=== PATIENT | female | born 1955 | race Caucasian/White ===

== ENCOUNTER → 2016-11-21 | Outpatient (CLI) | payer BC ==
--- NOTE | 2016-11-22 12:31 | MAMMOGRAPHY REPORT ---
BILATERAL DIGITAL SCREENING MAMMOGRAM WITH CAD: 11/21/2016 CLINICAL HISTORY: Routine screening. Patient has no complaints. TECHNIQUE: Bilateral CC, MLO, repeat CC views with the nipples in profile as well as a repeat left M LO view were obtained. Current study was also evaluated with a Computer Aided Detection (CAD) syste m. COMPARISON: Comparison is made to exams dated: 11/18/2015 mammogram, 08/23/2014 mammogram, 3 mammogram, 08/18/2012 mammogram, 08/16/2011 mammogram, and 12/15/2009 mammogram - [facility]. BREAST COMPOSITION: The tissue of both breasts is almost entirely fatty. FINDINGS: There are stable grouped calcifications in the far posterior medial left breast. A stabl e benign appearing 10 mm mass in the anterior subareolar left breast appears similar in size dating back to at least 12/15/2009, therefore likely benign. No new suspicious mass, architectural distortion or cluster of microcalcifications is seen. IMPRESSION: ACR BI-RADS CATEGORY 2: BENIGN There is no mammographic evidence of malignancy. A 1 year screening mammogram is recommended. The p atient will receive written notification of the results. Approximately 10% of breast cancers are not detected with mammography. A negative mammographic repor t should not delay biopsy if a clinically suggestive mass is present. Laya Montero M.D. ay/:11/21/2016 17:07:50 Sketcher: Jeffrey AVERY(R)(M), [facility] letter sent: Normal 1/2 BI-RADS Code: ACR BI-RADS Category 2: Benign
== END | disposition home or self-care (01) ==
LOC: C.MAMM 16:41
PROVIDERS: ATTEND Family Medicine
DX: Z12.31 Encounter for screening mammogram for malignant neoplasm of breast (principal)

== ENCOUNTER → 2017-11-04 | Outpatient (CLI) | payer BC ==
[2017-11-04 18:22] LABS: BLOOD UREA NITROGEN 13 mg/dl (7-18); CREATININE 0.95 mg/dl (0.60-1.20)
== END | disposition home or self-care (01) ==
LOC: C.LABMFLN 16:55
PROVIDERS: ATTEND Psychiatry & Neurology Neurology
DX: Z00.00 Encounter for general adult medical examination without abnormal findings (principal)

== ENCOUNTER → 2017-11-15 | Outpatient (CLI) | payer BC ==
[~2017-11-15] MED LIST: GADAVIST IV PRN
--- NOTE | 2017-11-15 11:00 | DIAGNOSTIC IMAGING REPORT ---
BRAIN COMBO FOR MS HISTORY: 62 years-old Female G35 Multiple sclerosis. Follow-up study in a patient with multiple sclerosis COMPARISON: Brain MRI 07/24/2016 TECHNIQUE: Multiplanar multisequence MRI the brain was obtained both with and without the use of 11 mL Gadavist utilizing MS protocol. FINDINGS: There is no restricted diffusion to suggest infarction. Midline structures including the corpus callosum, brainstem, optic chiasm, infundibulum, pituitary and pineal glands appear unremarkable on the sagittal T1 series. No cerebellar tonsillar herniation. Degenerative changes noted within the spine. There is no acute intracranial hemorrhage, midline shift, abnormal extra-axial collections, hydrocephalus or intracranial mass identified. The major flow voids at the level of the skull base appear to be patent. Mastoid air cells appear generally clear. Mild mucosal thickening of the ethmoid air cells and right maxillary sinus. Orbits and soft tissues are unremarkable. Note is made of hyperostosis frontalis interna. There is no abnormal extra-axial or extra-axial enhancement identified. There is redemonstration of multifocal areas of T2/FLAIR prolongation within the periventricular and subcortical white matter which appears stable from comparison without new lesions identified. No infratentorial lesions are seen. The imaged cervical spinal cord appears unremarkable. IMPRESSION: 1. No acute intracranial abnormality identified. 2. Unchanged multifocal areas of T2/FLAIR prolongation within the subcortical and periventricular white matter of the cerebral hemispheres bilaterally compatible with patient's clinical history of multiple sclerosis. No new lesions are identified. No abnormal enhancement seen to suggest active demyelination. The above report was generated using voice recognition software. It may contain grammatical, syntax or spelling errors. Electronically signed by: Aguila Lawton M.D. 11/15/2017 10:58 AM Dictated Date/Time: 11/15/2017 10:49 AM
== END | disposition home or self-care (01) ==
LOC: C.MRI 09:22
PROVIDERS: ATTEND Psychiatry & Neurology Neurology
DX: G35 Multiple sclerosis (principal)

== ENCOUNTER → 2017-11-25 | Outpatient (CLI) | payer BC ==
--- NOTE | 2017-11-26 07:58 | MAMMOGRAPHY REPORT ---
BILATERAL DIGITAL SCREENING MAMMOGRAM TOMOSYNTHESIS WITH CAD: 11/25/2017 CLINICAL HISTORY: Routine screening. TECHNIQUE: Breast tomosynthesis in addition to standard 2D mammography was performed. Current study was also evaluated with a Computer Aided Detection (CAD) system. COMPARISON: Comparison is made to exams dated: 11/21/2016 mammogram, 11/18/2015 mammogram, 08/23/2014 mammogram, 08/19/2013 mammogram, 08/18/2012 mammogram, and 08/16/2011 mammogram - [facility]. BREAST COMPOSITION: The tissue of both breasts is almost entirely fatty. FINDINGS: A small grouping of round and coarse calcifications in the far posterior left breast proje cting over the inferior petrosal muscle on the MLO view appears stable in number dating back to at le ast 08/16/2011, therefore likely benign. There are other stable groupings of punctate microcalcifica tions in the breasts. Stable nodular asymmetry in the medial, middle one third of the right breast o n the CC view. No suspicious mass, architectural distortion or cluster of microcalcifications is seen . IMPRESSION: ACR BI-RADS CATEGORY 2: BENIGN There is no mammographic evidence of malignancy. A 1 year screening mammogram is recommended. The pa tient will receive written notification of the results. Approximately 10% of breast cancers are not detected with mammography. A negative mammographic report should not delay biopsy if a clinically suggestive mass is present. Laya Montero M.D. ay/:11/25/2017 17:08:09 Nutrition Counselor: Jeffrey AVERY(Torri)(M), [facility] letter sent: Normal 1/2 BI-RADS Code: ACR BI-RADS Category 2: Benign
== END | disposition home or self-care (01) ==
LOC: C.MAMM 16:23
PROVIDERS: ATTEND Family Medicine
DX: Z12.31 Encounter for screening mammogram for malignant neoplasm of breast (principal)

== ENCOUNTER → 2017-12-24 | Outpatient (CLI) | payer BC ==
[2017-12-24 18:12] LABS: BASO % 0.7 %; BASO ABS # 0.04 K/uL (0-0.2); EOS ABS # 0.12 K/uL (0-0.5); HEMATOCRIT 40.9 % (37-47); HEMOGLOBIN 13.9 g/dL (12.0-16.0); IG# 0.01 K/uL (0.00-0.02); LYMPH % 21.7 %; LYMPH ABS # 1.33 K/uL (1.2-3.4); MEAN CELL VOLUME 85.4 fL (80-100); MEAN PLATELET VOLUME 10.7 fL (7.4-10.4); MONO % 7.2 %; MONO ABS # 0.44 K/uL (0.11-0.59); NEUT % 68.2 %; NEUT ABS # 4.19 K/uL (1.4-6.5); PLATELET COUNT 215 K/uL (130-400); RED CELL DISTRIBUTION WIDTH CV 15.2 % (11.5-14.5); RED CELL DISTRIBUTION WIDTH SD 47.2 fL (36.4-46.3); WHITE BLOOD COUNT 6.13 K/uL (4.8-10.8)
[2017-12-24 18:33] LABS: ALBUMIN 3.6 gm/dl (3.4-5.0); ALT/SGPT 20 U/L (12-78); BLOOD UREA NITROGEN 15 mg/dl (7-18); CALCIUM 9.5 mg/dl (8.5-10.1); CARBON DIOXIDE 30 mmol/L (21-32); CREATININE 0.83 mg/dl (0.60-1.20); GLUCOSE 82 mg/dl (70-99); POTASSIUM 3.8 mmol/L (3.5-5.1); SODIUM 138 mmol/L (136-145)
[2017-12-24 18:36] LABS: ALKALINE PHOSPHATASE 91 U/L (45-117); AST/SGOT 17 U/L (15-37); TOTAL PROTEIN 7.6 gm/dl (6.4-8.2)
== END | disposition home or self-care (01) ==
LOC: C.LABMFLN 12:05
PROVIDERS: ATTEND Psychiatry & Neurology Neurology
DX: E55.9 Vitamin D deficiency, unspecified (principal)

== ENCOUNTER → 2018-01-21 | Outpatient (CLI) | payer BC | LOC: C.LABMFLN 10:05 | PROVIDERS: ATTEND Family Medicine | DX: E03.9 Hypothyroidism, unspecified (principal); E78.00 Pure hypercholesterolemia, unspecified ==

== ENCOUNTER 2020-05-20 07:36 | Observation (INO) ==
--- NOTE | 2020-04-22 13:03 | PAT Medication Instructions ---
Medication Instructions Date of Service April 22, 2020 Home Medications Medication Instructions Recorded drop arm commode #1 ea 07/30/19 Wheelchair (Manual or Powered) #1 ea 09/28/19 miscellaneous medical supply #1 ea 09/28/19 natalizumab 300 mg/15 mL 300 mg IV Q28D #15 ml 11/17/19 intravenous solution baclofen 20 mg tablet 20 mg PO QID #360 tab 04/14/20 cranberry 500 mg capsule 500 mg PO QAM krill oil 500 mg capsule 500 cap PO BID multivitamin with xhl-TD-ewgklg 400 mcg-120 mg tablet 1 tab PO QAM calcium carbonate-vitamin D3 600 mg calcium-200 unit capsule 2 cap PO BID cholecalciferol (vitamin D3) 125 mcg (5,000 unit) tablet 5,000 units PO QAM meclizine 12.5 mg tablet 12.5 mg PO TID PRN natalizumab 300 mg/15 mL intravenous solution 300 mg IV Q28D baclofen 20 mg tablet 20 mg PO QID escitalopram oxalate 10 mg PO QAM escitalopram oxalate 20 mg PO QAM furosemide [Lasix] 20 mg PO QAM ketoconazole 1 appln TOPICAL 2XWK levothyroxine 100 mcg PO QAM meloxicam 15 mg PO QAM mirabegron [Myrbetriq] 50 mg PO QAM omeprazole 20 mg PO QAM pravastatin 20 mg PO PM zoledronic crxb-cytlhacp-xbmam [Reclast] 5 mg IV YEARLY Continue as directed zoledronic tjdk-bojkvmgx-ecigw [Reclast] 5 mg IV YEARLY ASK your surgeon for instructions meloxicam 15 mg PO QAM ASK your prescriber and surgeon natalizumab 300 mg/15 mL intravenous solution 300 mg IV Q28D STOP taking 2 weeks before surgery (or as soon as possible if surgery is within 2 weeks) cranberry 500 mg capsule 500 mg PO QAM krill oil 500 mg capsule 500 cap PO BID multivitamin with fwu-CY-cprldq 400 mcg-120 mg tablet 1 tab PO QAM STOP taking 24 hours before surgery ketoconazole 1 appln TOPICAL 2XWK DO NOT take the morning of surgery calcium carbonate-vitamin D3 600 mg calcium-200 unit capsule 2 cap PO BID cholecalciferol (vitamin D3) 125 mcg (5,000 unit) tablet 5,000 units PO QAM baclofen 20 mg tablet 20 mg PO QID furosemide [Lasix] 20 mg PO QAM mirabegron [Myrbetriq] 50 mg PO QAM Take morning of surgery With a small sip of water, OTHERWISE NOTHING TO EAT OR DRINK AFTER MIDNIGHT: meclizine 12.5 mg tablet 12.5 mg PO TID PRN (if needed) escitalopram oxalate 10 mg PO QAM escitalopram oxalate 20 mg PO QAM levothyroxine 100 mcg PO QAM omeprazole 20 mg PO QAM Take evening before surgery calcium carbonate-vitamin D3 600 mg calcium-200 unit capsule 2 cap PO BID meclizine 12.5 mg tablet 12.5 mg PO TID PRN (if needed) baclofen 20 mg tablet 20 mg PO QID pravastatin 20 mg PO PM Other Notes If you have any questions please call us at [phone] or [phone] or [phone] or [phone]
--- NOTE | 2020-04-25 10:03 | Anesthesiology Consultation ---
Date of Service April 25, 2020 Assessment & Plan (1) Encounter for pre-operative examination: - Awaiting surgeon-ordered PCP clearance scheduled 05/02 ([facility]). - Neurology office visit: 04/14/20: "Patient has MS which is very stable and controlled on Tysabri. She has recently become SAMIRA positive but with a low titer of 0.78. The patient has some new onset headaches (no history of migraines before). Her mood is stable and her peripheral neuropathy is stable." Occasional visual disturbances/aura. MRI brain/cervical being done 04/26 ([facility]). Awaiting MRI results. *Per PAT assessment on 04/25: Travel screen- Travel to [facility] for doctor appt. Wears mask. No known COVID-19 positive contacts. No current COVID-19 related symptom. Chart Review Chart Review: Patient seen in Pre Admission Testing Teaching & Discussion Pre-Anesthesia Teaching/Discussion Notes: Instructed NPO after midnight before surgery,except medications with 15 cc of water. Medication instructions provided according to the [facility] guidelines. History Surgery Operation Date: 05/20/20 07:30 Proposed Procedures p Left Foot Lengthening of Posterior Tibial Tendon, Flexor Hallucis Longus, Flexor Digitorum Longus, - Von Feldman DO s Achilles Tendon, Possible Plantar Fascial Release, Possible Posterior Tibial Tendon Transfer, Application of Platelet-Rich Plasma - Von Feldman DO Height/Weight Height: 5 ft 8 in Weight: 120.202 kg (weight per verbal/per patient, advised non-weight bearing by surgeon) Allergies Allergy/AdvReac Type Severity Reaction Status Date / Time fesoterodine Allergy Unknown itching Verified 04/25/20 10:01 Iodinated Contrast Media Allergy Unknown itching Verified 04/25/20 10:01 latex Allergy Unknown sensitivity Verified 04/25/20 10:01 oxycodone Allergy Unknown unknown Verified 04/25/20 10:01 reaction Toviaz TB24 AdvReac Severe weakness Uncoded 04/25/20 10:01 Medications Home Medications Medication Instructions Recorded Confirmed Last Taken cranberry 500 mg capsule 500 mg PO QAM 05/30/19 04/18/20 Unknown krill oil 500 mg capsule 500 cap PO BID cap 05/30/19 04/18/20 Unknown multivitamin with lha-GV-avhpqr 1 tab PO QAM tab 05/30/19 04/18/20 Unknown 400 mcg-120 mg tablet drop arm commode #1 ea 07/30/19 04/18/20 Unknown calcium carbonate-vitamin D3 600 2 cap PO BID cap 09/25/19 04/18/20 Unknown mg calcium-200 unit capsule cholecalciferol (vitamin D3) 125 5,000 units PO QAM tab 09/25/19 04/18/20 Unknown mcg (5,000 unit) tablet meclizine 12.5 mg tablet 12.5 mg PO TID PRN #30 tab 09/25/19 04/18/20 Unknown Wheelchair (Manual or Powered) #1 ea 09/28/19 04/18/20 Unknown miscellaneous medical supply #1 ea 09/28/19 04/18/20 Unknown natalizumab 300 mg/15 mL 300 mg IV Q28D #15 ml 11/17/19 04/18/20 Unknown intravenous solution baclofen 20 mg tablet 20 mg PO QID #360 tab 04/14/20 04/18/20 Unknown escitalopram oxalate 10 mg PO QAM 04/18/20 04/18/20 Unknown escitalopram oxalate 20 mg PO QAM 04/18/20 04/18/20 Unknown furosemide [Lasix] 20 mg PO QAM 04/18/20 04/18/20 Unknown ketoconazole 1 appln TOPICAL 2XWK 04/18/20 04/18/20 Unknown levothyroxine 100 mcg PO QAM 04/18/20 04/18/20 Unknown meloxicam 15 mg PO QAM 04/18/20 04/18/20 Unknown mirabegron [Myrbetriq] 50 mg PO QAM 04/18/20 04/18/20 Unknown omeprazole 20 mg PO QAM 04/18/20 04/18/20 Unknown pravastatin 20 mg PO PM 04/18/20 04/18/20 Unknown zoledronic gkts-yaiprako-ifkhw 5 mg IV YEARLY 04/18/20 04/18/20 Unknown [Reclast] lorazepam 1 mg tablet 1 mg PO .COMPLEX PRN #2 tab 04/22/20 Unknown Past Medical History Medical History Anxiety Arthritis Contracture, left foot Depression GERD (gastroesophageal reflux disease) controlled History of endometrial cancer Hypercholesterolemia Hypothyroidism Insomnia Lyme disease hx/"resolved" Malignant neoplasm of corpus uteri Malignant neoplasm of vulva per records, patient unaware Migraine Morbid obesity Multiple sclerosis "very stable"/follows with [facility] neurology Nephrolithiasis Neurogenic bladder on Mybetriq, no self-cath Osteoporosis Peripheral neuropathy Pulmonary embolism post-op (2006)- was on ventilator x 12 days ([facility] Urinary incontinence Uterine cancer s/p XRT (2006) Visual disturbance occasional, being monitored by neurology (Dr. Bates) Exercise / Class Metabolic Activity III < 4 Walking/Shop/Light housework (currently wheelchair bound 2/2 left foot/ankle issue (reason for upcoming orthopedic surgery)) Past Family History Family History Father Heart disease Hypertension Mother Heart disease Grandfather (Paternal) Diabetes Grandmother (Maternal) Cancer Past Surgical History Surgical History H/O foot surgery LEFT BUNIONECTOMY History of colonoscopy History of hysterectomy Hx of chest tube placement 2006 WHEN ON VENTILATOR> RIGHT S/P cholecystectomy S/P tubal ligation Umbilical hernia WITH REMOVAL Past Anesthesia History No Hx of Anesthesia Complications and No Family Hx of Anesthesia Complications History of PONV No Hx of PONV and No Hx of Motion Sickness Social History Smoking Status: Never smoker Do You Dip or Chew Tobacco: No Hx Alcohol Use: No Hx Substance Use: No substance use type: does not use Review of Systems Reflux controlled. Patient denies chest pain, shortness of breath, fever, chills, cough, wheezing, palpitations. Physical Exam Vital Signs VITALS BP 133/83 P 83 TEMP 98.4 SP02 95%RA RESP 18 PHYSICAL Full neck and c-spine range of motion. Full TMJ range of motion. TMD finger breaths (difficult to palpate) Mallampati Score Dentition: broken sides/molars per patient, + crowns sides/molars Lungs: clear throughout to auscultation Cardiac: regular rate and rhythm, no murmurs noted Spine: normal Carotid arteries: negative bruit Extremities: no edema Testing Laboratory Results Urine Color Yellow 04/25/20 Unknown Urine Appearance Clear (Clear) 04/25/20 Unknown Urine pH 7.0 (4.5-7.5) 04/25/20 Unknown Ur Specific [place] 1.008 (1.000-1.030) 04/25/20 Unknown Urine Protein Negative (Negative) 04/25/20 Unknown Urine Glucose (UA) Negative (Negative) 04/25/20 Unknown Urine Ketones Negative (Negative) 04/25/20 Unknown Urine Nitrite Negative (Negative) 04/25/20 Unknown Ur Leukocyte Esterase 1+ (Negative) H 04/25/20 Unknown Urine WBC (Auto) 1-5 /hpf (0-5) 04/25/20 Unknown Urine RBC (Auto) 0-4 /hpf (0-4) 04/25/20 Unknown U Hyaline Cast (Auto) 1-5 /lpf (0-5) 04/25/20 Unknown U Epithel Cells (Auto) 10-20 /lpf (0-5) H 04/25/20 Unknown Urine Bacteria (Auto) 2+ (Negative) H 04/25/20 Unknown Surgeon's office made aware of abnormal UA* 04/21/20 WBC 5.23 H/H 13.8/41.3 PLATELETS 187 SODIUM 140 POTASSIUM 4.2 CHLORIDE 106 CO2 28 BUN 14 CREATININE 0.83 GLUCOSE 85 PT 10.3 PTT 28.5 INR 1.0 TSH 3.700 Electrocardiogram Date: 04/25/20 NSR at 85bpm. Low voltage QRS. Echocardiogram Date: 11/05/17 LVEF 63%. No RWMA. Grade I DD. No significant valvular disease. Mildly increased cLV wall thickness.
[2020-04-25 12:32] LABS: Appearance Urine Clear (Clear); Bacteria Urine Automated 2+ (Negative); Bilirubin Urine Negative (Negative); Blood Urine Negative (Negative); Color Urine Yellow; Glucose Urine UA Negative (Negative); Ketones Urine Negative (Negative); Leukocyte Esterase Urine 1+ (Negative); Nitrite Urine Negative (Negative); Protein Urine Negative (Negative); RBC Urine Automated 0-4 /hpf (0-4); Specific Gravity Urine 1.008 (1.000-1.030); Urobilinogen Urine Negative (Negative)
--- NOTE | 2020-04-25 14:01 | Electrocardiogram Report ---
Test Reason : Blood Pressure : / mmHG Vent. Rate : 085 BPM Atrial Rate : 085 BPM P-R Int : 186 ms QRS Dur : 092 ms QT Int : 370 ms P-R-T Axes : 049 014 032 degrees QTc Int : 440 ms Normal sinus rhythm Low voltage QRS Borderline ECG No previous ECGs available Confirmed by Leonides Murillo ([id number]) on 04/25/2020 2:00:46 PM Referred By: Von Feldman Confirmed By:Leonides Murillo
--- NOTE | 2020-05-19 16:23 | History & Physical Report ---
Date of Service May 19, 2020 Assessment & Plan (1) Equinus contracture of left ankle: Schedule a Left foot lengthening of posterior tibial tendon, FHL, FDL, achilles tendon, possible plantar fascia release, possible posterior tibial tendon transfer, application PRP for 05.20.2020. All potential risks, benefits, complications, alternatives, and rehab have been discussed with the patient and she wishes to proceed. Lovenox x 4 wks post op for DVT prophylaxis. (2) Achilles tendon contracture, left: (3) Post-traumatic spasticity: History of Present Illness Chief Complaint: left ankle deformity and difficulty ambulating Primary Care Provider: Syed Turner DO This is a patient that had a bimalleolar ankle fx in May of 2019. It was fixed by Melissa COUCH in [place]. She was progressing well but while doing exercises 1 month ago, she sprained the left ankle. After that, she started having a worsening contracture of the left foot/ankle. She is now unable to put the foot flat on the floor and is putting weight on the lateral and partially dorsal aspect of the 5th metatarsal. She is currently being set up for surgical management. Allergies Allergy/AdvReac Type Severity Reaction Status Date / Time fesoterodine Allergy Unknown itching Verified 05/02/20 15:39 Iodinated Contrast Media Allergy Unknown itching Verified 05/02/20 15:39 latex Allergy Unknown sensitivity Verified 05/02/20 15:39 oxycodone Allergy Unknown unknown Verified 05/02/20 15:39 reaction Toviaz TB24 AdvReac Severe weakness Uncoded 05/02/20 15:39 Home Medications Home Medications Medication Instructions Recorded Confirmed Type cranberry 500 mg capsule 500 mg PO QAM 05/30/19 05/02/20 History krill oil 500 mg capsule 500 cap PO BID cap 05/30/19 05/02/20 History multivitamin with gyt-OV-rvmouo 1 tab PO QAM tab 05/30/19 05/02/20 History 400 mcg-120 mg tablet calcium carbonate-vitamin D3 600 2 cap PO BID cap 09/25/19 05/02/20 History mg calcium-200 unit capsule cholecalciferol (vitamin D3) 125 5,000 units PO QAM tab 09/25/19 05/02/20 History mcg (5,000 unit) tablet meclizine 12.5 mg tablet 12.5 mg PO TID PRN #30 tab 09/25/19 05/02/20 History Wheelchair (Manual or Powered) #1 ea 09/28/19 05/02/20 Rx miscellaneous medical supply #1 ea 09/28/19 05/02/20 Rx natalizumab 300 mg/15 mL 300 mg IV Q28D #15 ml 11/17/19 05/02/20 Rx intravenous solution baclofen 20 mg tablet 20 mg PO QID #360 tab 04/14/20 05/02/20 Rx escitalopram oxalate 10 mg PO QAM 04/18/20 05/02/20 History escitalopram oxalate 20 mg PO QAM 04/18/20 05/02/20 History furosemide [Lasix] 20 mg PO QAM 04/18/20 05/02/20 History ketoconazole 1 appln TOPICAL 2XWK 04/18/20 05/02/20 History levothyroxine 100 mcg PO QAM 04/18/20 05/02/20 History meloxicam 15 mg PO QAM 04/18/20 05/02/20 History mirabegron [Myrbetriq] 50 mg PO QAM 04/18/20 05/02/20 History omeprazole 20 mg PO QAM 04/18/20 05/02/20 History pravastatin 20 mg PO PM 04/18/20 05/02/20 History zoledronic kcyc-ldhfifvr-xvcav 5 mg IV YEARLY 04/18/20 05/02/20 History [Reclast] Past Med/Surg History Medical History Anxiety Arthritis Contracture, left foot Depression GERD (gastroesophageal reflux disease) controlled History of endometrial cancer Hypercholesterolemia Hypothyroidism Insomnia Lyme disease hx/"resolved" Malignant neoplasm of corpus uteri Malignant neoplasm of vulva per records, patient unaware Migraine Morbid obesity Multiple sclerosis "very stable"/[facility] Nephrolithiasis Neurogenic bladder on Mybetriq, no self-cath Osteoporosis Peripheral neuropathy Pulmonary embolism post-op (2006)- was on ventilator x 12 days ([facility] [place]) Urinary incontinence Uterine cancer s/p XRT (2006) Visual disturbance occasional, being monitored by neurology (Dr. Bates) Surgical History H/O foot surgery LEFT BUNIONECTOMY History of colonoscopy History of hysterectomy Hx of chest tube placement 2006 WHEN ON VENTILATOR> RIGHT S/P cholecystectomy S/P tubal ligation Umbilical hernia WITH REMOVAL Family History Father Heart disease Hypertension Mother Heart disease Grandfather (Paternal) Diabetes Grandmother (Maternal) Cancer Social History Smoking Status: Never smoker Second Hand Exposure: No; Hx Alcohol Use: No Hx Substance Use: No Preferred Language: Kazakh Communication Ability: Effective Research Associate Professor Required: No Beliefs That Will Affect Care: None marital status: Current Living Situation: Spouse Current Living Situation Comment: AND SON HELPS Feels Safe at Home: Yes Physical Exam Constitutional: well developed and well nourished; no acute distress ENMT: external ear and nose normal, oropharynx normal Neck: trachea midline, no thyromegaly Respiratory: normal respiratory effort, lungs clear to auscultation Cardiovascular: Rate/Rhythm: regular rate and regular rhythm Gastrointestinal (Abdomen): normal bowel sounds, soft, nontender, no hepatosplenomegaly Musculoskeletal: Ankle: + deformity (left Equinus contracture) and + limited ROM of ankle (left ankle with limited ROM/contracture plantarflexed/inverted.); no skin erythema and no ecchymosis Skin: no rashes, warm and dry Psychiatric: A+Ox3, euthymic affect Lymphatic: no cervical or axillary lymphadenopathy
[~2020-05-20 07:36] MED LIST changes: +EPINEPHrine INJ 1 MG/ML AMP ONE; -GADAVIST IV PRN; +LR 15ML/HR IV SCH; +ROPIVACAINE 0.5% 5 MG/ML 30 ML VIAL ONE
[2020-05-20] MEDS ORDERED: BUPIVACAINE 0.5 % 5 MG/1 ML MPF 30ML VIAL ONE (08:04)
[2020-05-20] MEDS ORDERED: BACITRACIN INJ 50,000 UNIT VIAL ONE (08:04)
[2020-05-20] MEDS ORDERED: CALCIUM CHLORIDE 10% 10 ML SYR IV ONE (08:06)
[2020-05-20] MEDS ORDERED: THROMBIN 5000 UNITS KIT ONE (08:15)
[2020-05-20] MEDS ORDERED: PHENYLEPHRINE 100MCG/ML 5ML SYR IV PRN (09:06)
[2020-05-20] MEDS ORDERED: ePHEDrine sulfate 50 MG/ML AMP IV PRN (09:06)
[2020-05-20] MEDS ORDERED: HYDROmorphone INJ 1 MG/ML SYRINGE IV PRN (09:06)
[2020-05-20] MEDS ORDERED: MEPERIDINE HCL 25 MG/ML CARP/VIAL IV PRN (09:06)
[2020-05-20] MEDS ORDERED: fentaNYL citrate 100 MCG/2 ML VIAL IV PRN (09:06)
[2020-05-20] MEDS ORDERED: LABETALOL HCL IV 5 MG/ML 20ML IV PRN (09:06)
[2020-05-20] MEDS ORDERED: ATROPINE SULFATE 0.1 MG/ML 10ML SYR IV PRN (09:06)
[2020-05-20] MEDS ORDERED: ONDANSETRON INJ 2 MG/ML 2 ML VIAL IV PRN ×2 (09:06→18:35)
[2020-05-20] MEDS ORDERED: DEXAMETHASONE SOD INJ 4 MG/ML VIAL ONE (09:33)
[2020-05-20] MEDS ORDERED: fentaNYL citrate 100 MCG/2 ML VIAL ONE (09:33)
[2020-05-20] MEDS ORDERED: ONDANSETRON INJ 2 MG/ML 2 ML VIAL ONE ×2 (09:33→15:08)
[2020-05-20] MEDS ORDERED: PROPOFOL IV EMULSION 10 MG/ML 20 ML VIAL IV ONE (09:33)
[2020-05-20] MEDS ORDERED: LIDOCAINE HCL 2% 2 ML VIAL/AMP(20MG/ML) INFIL ONE (09:33)
[2020-05-20] MEDS ORDERED: MIDAZOLAM HCL 1 MG/ML 2ML VIAL ONE (09:33)
[2020-05-20] MEDS ORDERED: cloNIDine HCL 100 MCG/ML SYR ONE (10:04)
--- NOTE | 2020-05-20 10:34 | History & Physical Bridge Note ---
Date of Service May 20, 2020 History & Physical Bridge Note I have examined the patient, reviewed the History & Physical and in the interval since the performance of the History & Physical I have noted the following changes of clinical significance: no changes noted
[2020-05-20] MEDS ORDERED: CEFAZOLIN 3000MG/72.5 ML BAG IV ONE ×2 (10:44→15:09)
[2020-05-20] MEDS ORDERED: CEFAZOLIN 3000MG 72.5 ML IV SCH (10:46)
[2020-05-20] MEDS ORDERED: ePHEDrine sulfate 50 MG/ML SYR ONE (12:28)
--- NOTE | 2020-05-20 14:26 | Fluoroscopy Report ---
FL foot LT 2V HISTORY: 64 years-old Female LEFT FOOT left foot tendon lengthening COMPARISON: None TECHNIQUE: 2 spot fluoroscopic images of the left foot were obtained utilizing 31.3 seconds fluorosco py time FINDINGS: Cannulated screw of the distal aspect of the first metatarsal. Additional cannulated screws are noted within the hindfoot with interval placement of a cannulated screw within the third cuneiform. Expect ed post surgical soft tissue swelling with deep tissue air. IMPRESSION: Fluoroscopic assistance as above. Please see operative report for further details. ACT 112: Negative or not required by law. The above report was generated using voice recognition software. It may contain grammatical, syntax o r spelling errors. Electronically signed by: Aguila Lawton M.D. 05/20/2020 2:24 PM
[2020-05-20] MEDS ORDERED: CEFAZOLIN 250 MG/ML 1 GM VIAL ONE ×2 (15:08)
--- NOTE | 2020-05-20 15:58 | Post Operative Brief Note ---
Immediate Post Op Note v1 Date of Surgery May 20, 2020 Pre & Post Diagnosis Operation Date: 05/20/20 09:45 Pre-Op Diagnosis: 1. Equinus contracture of left ankle 2. Achilles tendon contracture,left 3. post-traumatic spasticity 4. Flexor hallucis longus contracture 5. Flexor digitorum longus contracture 6. Plantar fascia contracture 7. Posterior ankle joint fixed contracture Post-Op Diagnosis: 1. Equinus contracture of left ankle 2. Achilles tendon contracture,left 3. post-traumatic spasticity 4. Flexor hallucis longus contracture 5. Flexor digitorum longus contracture 6. Plantar fascia contracture 7. Posterior ankle joint fixed contracture I identified the patient and participated in the time-out.: Yes Procedure Operation Date: 05/20/20 09:45 Actual Procedures p Left Foot posterior tibial tendon transfer to third cuneiform with Arthrex Endobutton and 7 mm Bio-Tenodesis screw. Lengthening of Flexor Hallucis Longus tendon, lengthening of flexor Digitorum Longus tendon (Left) - Von Feldman DO s Achilles Tendon lengthening, Plantar Fascial Release, Application of Platelet- Rich Plasma concentrate, Posterior Ankle arthrotomy with capsular Release(Left) - Von Feldman DO Surgeon Von Feldman DO Chain Carrier Jonathan Nagy PA-C Estimated Blood Loss 50 Findings Consistent with Post-Op Diagnosis Specimens None Drains Ricardo Catheter (placed by Kary Yu RN, without difficulty and with return of clear, yellow urine. placed to gravity drain with uimeter, monitored by anesthes ia for duration of procedure. ) Anesthesia Type General Regional Complications none Disposition Accompanied Patient To Recovery: Yes Disposition: Recovery Room
--- NOTE | 2020-05-20 16:39 | Anesthesiology Progress Note ---
Date of Service May 20, 2020 Anesthesia Post Procedure Vital Signs Vital Signs: Temp Pulse Pulse Resp BP Pulse Ox 05/20/20 16:30 94 H 14 144/78 H 97 05/20/20 16:20 95 H 16 148/77 H 97 05/20/20 16:10 89 18 156/86 H 94 05/20/20 16:00 97 H 18 165/94 H 95 05/20/20 15:50 103 H 20 178/97 H 98 05/20/20 15:44 97.5 F L 102 H 20 156/103 H 96 05/20/20 09:14 94 H 18 156/82 H 97 05/20/20 08:33 99.1 F 107 H 20 163/76 H 95 Transfer of Care Handoff Completed per policy Notes Mental Status: alert / awake / arousable and participated in evaluation Patient Amnestic to Procedure: Yes Nausea / Vomiting: adequately controlled Pain: adequately controlled Airway Patency, RR, SpO2: stable & adequate BP & HR: stable & adequate Hydration State: stable & adequate Anesthetic Complications: no major complications apparent and Pt Satisfied with anesthetic care
[2020-05-20] MEDS ORDERED: NALOXONE HCL 0.4 MG/1 ML VIAL/CARP IV PRN (18:35)
[2020-05-20] MEDS ORDERED: HYDROmorphone INJ 0.5 MG/0.5 ML SYR IV PRN (18:35)
[2020-05-20] MEDS ORDERED: bisacodyL 10 MG SUPP PR PRN (18:35)
[2020-05-20] MEDS ORDERED: MECLIZINE 12.5 MG TAB PO PRN (18:35)
[2020-05-20] MEDS ORDERED: MAGNESIUM HYDROXIDE SUSP 30 ML UDC PO PRN (18:35)
[2020-05-20] MEDS ORDERED: HYDROmorphone INJ 0.5 MG/0.5 ML SYR ONE (18:55)
--- NOTE | 2020-05-20 20:19 | Hospitalist Consultation ---
Date of Consultation May 20, 2020 Assessment & Plan (1) Post-traumatic spasticity: s/p Left Foot posterior tibial tendon transfer. Lengthening of Flexor Hallucis Longus tendon. Lengthening of flexor Digitorum Longus tendon. Achilles Tendon lengthening. Plantar Fascial Release. Posterior Ankle arthrotomy with capsular Release. 05/20/2020. Not yet regained sensation in her foot after nerve nerve block but cap refill normal. Pain management by orthopedics. (2) GERD (gastroesophageal reflux disease): Switch omeprazole for pantoprazole as per hospital formulary (3) Multiple sclerosis: Under control for many years but has increased risk of falling On Tysabri as an outpatient (4) Osteoporosis: On Reclast yearly, continue Ca-Vit D supplementation (5) Insomnia: Continue her usual diphenhydramine 25mg PO HS (6) Hypothyroidism: TSH WNL in March Continue levothyroxine 100 mcg PO daily (7) Anxiety: Continue Lexapro 30mg PO daily (8) Urinary incontinence: Continue Myrbetriq 50mg PO QAM (9) Leg swelling: Continue lasix 20mg PO daily, added hold parameters for BP (10) DVT prophylaxis: History of PE after total hysterectomy in 2006. Starting lovenox 40mg SQ daily in the morning. Thank you for allowing us to participate in the care of this patient. We will continue to see. History of Present Illness Reason for Consultation: Medical Management Attending Physician: Von Feldman, History of Present Illness Alisa Villeda is a 64 year old female with multiple sclerosis who presents to [facility] for elective contracture surgery of her left leg after traumatic injury back in May and failed outpatient physical therapy. Patient seen post operatively. She currently feels well. No questions or concerns at this time. She reports her chronic medical issues are well controlled. Only slightly concerning history of pulmonary embolism previously, however this was provoked back in 2006 after her total hysterectomy - she reports taking lovenox after operations since this time without an issue. Allergies Allergy/AdvReac Type Severity Reaction Status Date / Time fesoterodine Allergy Unknown itching Verified 05/20/20 08:19 Iodinated Contrast Media Allergy Unknown itching Verified 05/20/20 08:19 latex Allergy Unknown sensitivity Verified 05/20/20 08:19 oxycodone Allergy Unknown unknown Verified 05/20/20 08:19 reaction Toviaz TB24 AdvReac Severe weakness Uncoded 05/20/20 08:19 Home Medications Home Medications Medication Instructions Recorded Confirmed Type cranberry 500 mg capsule 500 mg PO QAM 05/30/19 05/20/20 History krill oil 500 mg capsule 500 cap PO BID cap 05/30/19 05/20/20 History multivitamin with [id number] 1 tab PO QAM tab 05/30/19 05/20/20 History 400 mcg-120 mg tablet calcium carbonate-vitamin D3 600 2 cap PO BID cap 09/25/19 05/20/20 History mg calcium-200 unit capsule cholecalciferol (vitamin D3) 125 5,000 units PO QAM tab 09/25/19 05/20/20 History mcg (5,000 unit) tablet meclizine 12.5 mg tablet 12.5 mg PO TID PRN #30 tab 09/25/19 05/20/20 History Wheelchair (Manual or Powered) #1 ea 09/28/19 05/02/20 Rx miscellaneous medical supply #1 ea 09/28/19 05/02/20 Rx baclofen 20 mg tablet 20 mg PO QID #360 tab 04/14/20 05/20/20 Rx escitalopram oxalate 10 mg PO QAM 04/18/20 05/20/20 History escitalopram oxalate 20 mg PO QAM 04/18/20 05/20/20 History furosemide [Lasix] 20 mg PO QAM 04/18/20 05/20/20 History ketoconazole 1 appln TOPICAL 2XWK 04/18/20 05/20/20 History levothyroxine 100 mcg PO QAM 04/18/20 05/20/20 History meloxicam 15 mg PO QAM 04/18/20 05/20/20 History mirabegron [Myrbetriq] 50 mg PO QAM 04/18/20 05/20/20 History omeprazole 20 mg PO QAM 04/18/20 05/20/20 History pravastatin 20 mg PO PM 04/18/20 05/20/20 History zoledronic [id number]-[id number] 5 mg IV YEARLY 04/18/20 05/20/20 History [Reclast] diphenhydramine HCl [Benadryl] 25 mg PO HS 05/20/20 05/20/20 History natalizumab [Tysabri] 300 mg IV Q28D 05/20/20 05/20/20 History Patient History Medical History Anxiety Arthritis Contracture, left foot Depression GERD (gastroesophageal reflux disease) controlled History of endometrial cancer Hypercholesterolemia Hypothyroidism Insomnia Lyme disease hx/"resolved" Malignant neoplasm of corpus uteri Malignant neoplasm of vulva per records, patient unaware Migraine Morbid obesity Multiple sclerosis "very stable"/follows with [facility] neurology Nephrolithiasis Neurogenic bladder on Mybetriq, no self-cath Osteoporosis Peripheral neuropathy Pulmonary embolism post-op (2006)- was on ventilator x 12 days ([facility]) Urinary incontinence Uterine cancer s/p XRT (2006) Visual disturbance occasional, being monitored by neurology (Dr. Bates) Surgical History H/O foot surgery LEFT BUNIONECTOMY History of colonoscopy History of hysterectomy Hx of chest tube placement 2006 WHEN ON VENTILATOR> RIGHT S/P cholecystectomy S/P tubal ligation Umbilical hernia WITH REMOVAL Family History Father Heart disease Hypertension Mother Heart disease Grandfather (Paternal) Diabetes Grandmother (Maternal) Cancer Social History Smoking Status: Never smoker Second Hand Exposure: No; Do You Dip or Chew Tobacco: No; Tobacco Cessation Education Requested by Patient: No Hx Alcohol Use: No Hx Substance Use: No Preferred Language: Slovak Communication Ability: Effective Hospitality Associate Required: No Beliefs That Will Affect Care: None marital status: Current Living Situation: Spouse Current Living Situation Comment: AND SON HELPS Other Information That Helps Us Care for You: No Feels Safe at Home: Yes Safety Concerns: Feels Safe At This Time Review of Systems Review of Systems: All systems reviewed & are unremarkable except as noted in HPI & below Physical Exam Constitutional: well developed and well nourished; no acute distress Eyes: + anicteric sclerae; normal pupil size ENMT: external ear and nose normal, oropharynx normal Neck: normal visual inspection, trachea midline, + short neck and + thick neck Respiratory: normal respiratory effort, lungs clear to auscultation Cardiovascular: Rate/Rhythm: regular rate and regular rhythm Heart Sounds: no murmur Extremities: normal capillary refill (distal to operation site) Gastrointestinal (Abdomen): normal bowel sounds, soft, nontender, no hepatosplenomegaly Skin: no rashes, warm and dry Neurologic: awake; not confused Motor/Sensory: + sensory deficit (no sensation in left toes (nerve block performed during surgery)) Psychiatric: A+Ox3, euthymic affect Results & Data Results & Data ([facility]) Vital Signs (Past 12 Hours) Vital Signs Temp Pulse Pulse Resp BP Pulse Ox 05/20/20 19:20 37 C 95 H 18 117/73 94 05/20/20 18:49 36.7 C 98 H 18 120/77 94 05/20/20 18:20 36.9 C 98 H 16 126/75 93 05/20/20 18:00 90 21 110/59 L 94 05/20/20 17:45 95 H 15 116/66 93 05/20/20 17:30 97 H 12 119/70 93 05/20/20 17:15 99 H 16 130/61 94 05/20/20 17:00 98 H 16 132/69 97 05/20/20 16:45 36.6 C 96 H 16 130/74 97 05/20/20 16:30 94 H 14 144/78 H 97 05/20/20 16:20 95 H 16 148/77 H 97 05/20/20 16:10 89 18 156/86 H 94 05/20/20 16:00 97 H 18 165/94 H 95 05/20/20 15:50 103 H 20 178/97 H 98 05/20/20 15:44 36.4 C L 102 H 20 156/103 H 96 05/20/20 09:14 94 H 18 156/82 H 97 05/20/20 08:33 37.3 C 107 H 20 163/76 H 95 PG Care Time/CCT Total # of Minutes Spent Total Time Spent with Patient: Total time spent is greater than 50% in coordination of care (as documented) at patient's floor/unit and/or counseling patient: Coding Level of Care Code 41896 Inpt Consult Level 3 Diagnoses Post-traumatic spasticity R25.2 GERD (gastroesophageal reflux disease) K21.9 Multiple sclerosis G35 Osteoporosis M81.0 Insomnia G47.00 Hypothyroidism E03.9 Anxiety F41.9 Urinary incontinence R32 Leg swelling M79.89 DVT prophylaxis Z29.9
[2020-05-20] MEDS: SODIUM CHLORIDE 0.9% 1000ML 1,000 ML IV SCH (20:37)
[2020-05-20] MEDS: SENNA 8.6 MG TAB PO SCH (20:39)
[2020-05-20] MEDS: PRAVASTATIN SOD 20 MG TAB PO SCH (20:39)
[2020-05-20] MEDS: DOCUSATE SODIUM 100 MG CAP PO SCH (20:39)
[2020-05-20] MEDS: CEFAZOLIN 2000MG 2,000 MG/15 ML SYR IV SCH (20:39)
[2020-05-20] MEDS: BACLOFEN 20 MG TAB PO SCH (20:39)
[2020-05-20] MEDS: ACETAMINOPHEN 500 MG TAB PO SCH (20:40)
[2020-05-21] MEDS: HYDROCODONE/ACETAMOPHEN 5/325MG TAB PO PRN ×3 (00:59→17:18)
--- NOTE | 2020-05-21 02:19 | Operative Report (OR) ---
DATE OF OPERATION: 05/20/2020 PREOPERATIVE DIAGNOSES: 1. Fixed equinus contracture, left ankle. 2. Achilles tendon contracture. 3. Contracture of the flexor hallucis longus. 4. Contracture of the posterior tibial tendon. 5. Contracture of the flexor digitorum longus. 6. Contracture of the plantar fascia. 7. Contracture of the posterior ankle joint. POSTOPERATIVE DIAGNOSES: 1. Fixed equinus contracture, left ankle. 2. Achilles tendon contracture. 3. Contracture of the flexor hallucis longus. 4. Contracture of the posterior tibial tendon. 5. Contracture of the flexor digitorum longus. 6. Contracture of the plantar fascia. 7. Contracture of the posterior ankle joint. PROCEDURES: 1. Left posterior tibial tendon transfer to the third cuneiform bone with Endobutton and 7 mm Arthrex Bio-Tenodesis screw. 2. Achilles tendon lengthening. 3. Flexor hallucis longus lengthening. 4. Flexor digitorum longus tendon lengthening. 5. Posterior ankle joint arthrotomy with capsulotomy. 6. Plantar fascial release. 7. Application of platelet rich plasma concentrate. SURGEON: Von Feldman DO VICE PRESIDENT OF NURSING: GUALBERTO Antonio, who was present for patient positioning, sterile prep and drape, management of retractors and instruments. He was present through the critical portions of the case including wound closure, application of sterile dressing and transport of the patient to recovery. ANESTHESIA: General, regional. SPECIMENS: None. DRAINS: None. COMPLICATIONS: None. BLOOD LOSS: 50 mL. PERTINENT HISTORY: This is a 64-year-old woman who had a posttraumatic contracture form of her left lower extremity. She had previous ORIF by another provider and then eventually developed fixed contractures of her left lower extremity as noted above. She attempted and failed conservative measures including physical therapy, physician-directed home exercises, anti-inflammatories, rest, use of a brace, use of an assistive device, observation, and use of a night splint. The patient failed all measures and after evaluation, patient was then scheduled for surgery as indicated. DESCRIPTION OF PROCEDURE: All potential risks, benefits, complications, alternatives, rehab, potential for incomplete relief of symptoms, need for further surgery, DVT, PE, , persistent pain, swelling, scarring, weakness, neurovascular injury, wound complications, hardware failure, nonunion, malunion, and need for further surgery were discussed with the patient. The patient decided to proceed with the procedure as indicated. The patient had a popliteal block in the preop holding area. She was then taken to the operative suite and placed supine on the operating room table. After review of consent and identification of the proper operative site, the patient was anesthetized, LMA was placed. Tourniquet was placed high on left thigh over cast padding. Left lower extremity was then sterilely prepped and draped in usual fashion, elevated and exsanguinated with an Esmarch bandage, tourniquet inflated to 350 mmHg. Next, a 15-blade scalpel was used to make an incision medial to the Achilles tendon. The incision was deepened through subcutaneous tissue. Meticulous hemostasis was achieved with electrocautery. The paratenon was incised in line with skin incision, elevated, and then a Z lengthening was then performed of the Achilles tendon along the sagittal plane. The 2 halves of the tendon were then left in the incision, so they would not devitalize. Next, attention was then directed toward the medial aspect of the left heel. A 15-blade scalpel was used to make an axial incision in line with the plantar fascia. The incision was deepened through subcutaneous tissue with 15-blade scalpel. Meticulous hemostasis was achieved with electrocautery. Weitlaner retractor was inserted in the incision revealing the plantar fascia. Plantar fascia was then released from medial to lateral using tenotomy scissors. Once this was completed, it was irrigated and then closed using buried interrupted 3-0 Vicryl and 4-0 nylon sutures. Next, the 15-blade scalpel was then used to make an incision along the flexor digitorum longus tendon. The incision was deepened through subcutaneous tissue and meticulous hemostasis was achieved with electrocautery. The laciniate ligament was incised in line with the skin incision as well as the flexor retinaculum revealing the posterior tibial tendon first. This was then traced distally to the navicular and this was sharply elevated and released from its insertion on the navicular. The tendon was then reshaped with a 15-blade scalpel to a 6 mm diameter as it passed through a graft sizer at 6 mm without difficulty. End of this tendon was then whipstitched with a #2 FiberLoop. This was then placed deep in the incision to maintain moisture. Next, the flexor digitorum longus tendon was then identified. The tendon sheath was opened with a tenotomy scissor and then the tendon was then lengthened with 11-blade scalpel and then reapproximated with the foot held in neutral dorsiflexion with #2 FiberWire. Next, the flexor hallucis longus tendon was then identified. Tendon sheath was then opened with a tenotomy scissor. The tendon was then lengthened using a Z lengthening fashion using 11-blade scalpel. The tendon was then elongated with the foot held in neutral dorsiflexion and then reapproximated with interrupted #2 FiberWire sutures. The tarsal tunnel was identified. The neurovascular structures were retracted and protected with [employer] retractors and the posterior aspect of the ankle joint contracture was identified and then a 15-blade scalpel was then used to perform an arthrotomy of the posterior ankle joint with capsulotomy. Once this was completed, marked improvement in dorsiflexion was noted to at least neutral dorsiflexion at the tibiotalar joint. The fixed contractures were largely released. Next, the incisions were all copiously irrigated with sterile normal saline. The foot was held in neutral dorsiflexion and the Achilles tendon was then reapproximated in its lengthened condition with interrupted #2 FiberWire sutures. Next, the Achilles tendon was then reapproximated. The Taylor clamp was then used to tunnel within the posterior tibial tendon sheath proximally through a small stab incision in the medial lower extremity. The tendon was then shuttled proximally using a shuttle suture of 2-0 Vicryl. Next, dissection was performed posterior to the midshaft tibia and then a small puncture was made in the interosseous membrane. The posterior tibial tendon was then shuttled from medial to lateral using a shuttle suture technique posterior to the tibia through the interosseous membrane. The interosseous membrane was then opened with tenotomy scissors allowing easy passage of the posterior tibial tendon, which was then transitioned distally along the lateral aspect of the ankle using a Taylor clamp tunneling technique and through a small stab incision use of a shuttling suture was then performed. Next, the final shuttling was performed from the distal lateral aspect of the fibula under the retinaculum just adjacent to the third cuneiform through a small tunnel that was made through a stab incision in the dorsal foot overlying the third cuneiform. Next, the tenotomy scissors were then carefully used to dissect through the extensor hallucis brevis. Retraction was performed with Nora rakes and the third cuneiform was identified using live fluoroscopic assistance. Guide pin was placed through the third cuneiform and then a small puncture was made in the plantar medial aspect of the foot. The pin was then transitioned to the medial foot and a 6 mm reamer was then tunneled to a depth of approximately 17 mm along the dorsal lateral aspect of the third cuneiform. The posterior tibial tendon was then shuttled into the third cuneiform, the lead suture was then passed to the bottom of the foot providing tension to maintain the docking of the posterior tibial tendon at the third cuneiform. Next, an Endobutton was applied to the distal lead suture to end up on the plantar medial aspect of the third cuneiform to stabilize the posterior tibial tendon in the third cuneiform to a depth of 17mm. This was then backed up with a 7 mm Bio-Tenodesis screw placed during direct visualization in the third cuneiform. Foot was held in neutral dorsiflexion with slight eversion. Next, a #2 FiberWire was then looped back to the posterior tibial tendon to stabilize, this was then tied and cut. All incisions were then copiously irrigated with sterile normal saline until clear. Next, the excess suture on the plantar medial aspect of the foot was then cut with a 15-blade scalpel. Small stab incision was then closed using nylon suture. Next, the paratenon over the Achilles tendon was then closed using 3-0 Vicryl, deep soft tissue was closed over the medial hindfoot using 2-0 Vicryl, closed the tendon sheath, and then all incisions were then closed using buried interrupted 3-0 Vicryl and platelet rich plasma concentrate was then injected particularly on the posterior aspect of the Achilles and the medial aspect of the hindfoot incision to ensure soft tissue healing. Next, all incisions were then closed using 4-0 nylon sutures. Next, a sterile compressive dressing was applied with the foot held in neutral dorsiflexion with slight hindfoot eversion and a bulky Herbie Khalil plaster splint was applied and wrapped with an Jian wrap. After the splint set, the patient was awakened and tourniquet was released. The patient was then taken to recovery in stable condition. I attest to the content of the Intraoperative Record and any orders documented therein. Any exceptions are noted below. MTDD
[2020-05-21] MEDS: SODIUM CHLORIDE 0.9% 1000ML 1,000 ML IV SCH ×2 (04:58→05:55)
[2020-05-21] MEDS: ACETAMINOPHEN 500 MG TAB PO SCH ×3 (05:38→22:32)
[2020-05-21] MEDS: LEVOTHYROXINE SODIUM 100 MCG TABLET PO SCH (05:39)
[2020-05-21] MEDS: CEFAZOLIN 2000MG 2,000 MG/15 ML SYR IV SCH (06:29)
[2020-05-21] MEDS: MIRABEGRON ER 25 MG TAB PO SCH (09:08)
[2020-05-21] MEDS: ESCITALOPRAM OXALATE 20 MG TAB PO SCH (09:08)
[2020-05-21] MEDS: ESCITALOPRAM OXALATE 10 MG TAB PO SCH (09:08)
[2020-05-21] MEDS: DOCUSATE SODIUM 100 MG CAP PO SCH ×2 (09:08→20:18)
[2020-05-21] MEDS: FUROSEMIDE 20 MG TAB PO SCH (09:08)
[2020-05-21] MEDS: BACLOFEN 20 MG TAB PO SCH ×4 (09:09→20:18)
[2020-05-21] MEDS: ENOXAPARIN INJ 40 MG/0.4 ML SYR SQ SCH (09:09)
[2020-05-21] MEDS: PANTOprazole 40 MG TAB PO SCH (09:09)
[2020-05-21] MEDS: MULTIVITAMIN TAB PO SCH (09:11)
[2020-05-21 09:25] LABS: Hematocrit (blood only) 35.8 % (37-47); Hemoglobin 11.8 g/dL (12.0-16.0); Mean Corpuscular Hemoglobin 27.9 pg (25-34); Mean Corpuscular Volume 84.6 fL (80-100); Mean Platelet Volume 10.5 fL (7.4-10.4); Platelet Count 159 K/uL (130-400); RDW Coefficient of Variation 14.8 % (11.5-14.5); RDW Standard Deviation 45.9 fL (36.4-46.3); Red Blood Count 4.23 M/uL (4.2-5.4); White Blood Count 6.23 K/uL (4.8-10.8)
[2020-05-21 09:50] LABS: BUN Creatinine Ratio 14.3 (10-20); Calcium 8.5 mg/dl (8.5-10.1); Creatinine Clr Calc Pharmacy 99.7 ml/min; Est GFR (African American) 89.7; Est GFR (Non-African American) 77.4; Potassium 3.9 mmol/L (3.5-5.1)
--- NOTE | 2020-05-21 10:37 | Orthopedic Progress Note ---
Date of Service May 21, 2020 Assessment & Plan (1) Equinus contracture of left ankle: Postop day 1 status post 1. Left posterior tibial tendon transfer to the third cuneiform bone with Endobutton and 7 mm Arthrex Bio-Tenodesis screw. 2. Achilles tendon lengthening. 3. Flexor hallucis longus lengthening. 4. Flexor digitorum longus tendon lengthening. 5. Posterior ankle joint arthrotomy with capsulotomy. 6. Plantar fascial release. 7. Application of platelet rich plasma concentrate. PT/OT protocols nonweightbearing left lower extremity DVT prophylaxis-Lovenox subcu daily, SCDs Pain management as written DC planning-planning for rehab versus SNF. Awaiting authorization. Admission and Anticipated Discharge Date Admission Date: May 20, 2020 Subjective Postop day 1 Patient sitting up in bed. Awake and alert. She has no complaints this morning. Pain is controlled. She denies shortness of breath, chest pain, lightheadedness. We discussed discharge plans of which she is looking at either [facility] versus a group home facility for short-term stay. Physical Exam Physical Exam: Splint/dressings are clean, dry, and intact. Toes are mobile. Cap refill is less than 2 seconds. She has decreased sensation with history of neuropathy. Results & Data ([facility]) Vital Signs (Past 12 Hours) Vital Signs Temp Pulse Pulse Resp BP Pulse Ox 05/21/20 08:00 36.8 C 80 18 125/70 97 05/21/20 04:06 36.4 C L 86 18 106/64 95 05/20/20 23:03 36.6 C 94 H 18 102/62 92 Laboratory Results Laboratory Results WBC 6.23 K/uL (4.8-10.8) 05/21/20 09:15 RBC 4.23 M/uL (4.2-5.4) 05/21/20 09:15 Hgb 11.8 g/dL (12.0-16.0) L 05/21/20 09:15 Hct 35.8 % (37-47) L 05/21/20 09:15 MCV 84.6 fL (80-100) 05/21/20 09:15 MCH 27.9 pg (25-34) 05/21/20 09:15 MCHC 33.0 g/dL (32-36) 05/21/20 09:15 RDW Std Deviation 45.9 fL (36.4-46.3) 05/21/20 09:15 RDW Coeff of Sivan 14.8 % (11.5-14.5) H 05/21/20 09:15 Plt Count 159 K/uL (130-400) 05/21/20 09:15 MPV 10.5 fL (7.4-10.4) H 05/21/20 09:15 Sodium 140 mmol/L (136-145) 05/21/20 09:15 Potassium 3.9 mmol/L (3.5-5.1) 05/21/20 09:15 Chloride 109 mmol/L (98-107) H 05/21/20 09:15 Carbon Dioxide 28 mmol/L (21-32) 05/21/20 09:15 Anion Gap 3.0 (3-11) 05/21/20 09:15 BUN 11 mg/dl (7-18) 05/21/20 09:15 Creatinine 0.80 mg/dl (0.6-1.2) 05/21/20 09:15 Est Cr Clr Drug Dosing 99.7 ml/min 05/21/20 09:15 Est GFR ( Amer) 89.7 05/21/20 09:15 Est GFR (Non-Af Amer) 77.4 05/21/20 09:15 BUN/Creatinine Ratio 14.3 (10-20) 05/21/20 09:15 Glucose 102 mg/dl (70-99) H 05/21/20 09:15 Calcium 8.5 mg/dl (8.5-10.1) 05/21/20 09:15 Urine Color Yellow 04/25/20 Unknown Urine Appearance Clear (Clear) 04/25/20 Unknown Urine pH 7.0 (4.5-7.5) 04/25/20 Unknown Ur Specific [place] 1.008 (1.000-1.030) 04/25/20 Unknown Urine Protein Negative (Negative) 04/25/20 Unknown Urine Glucose (UA) Negative (Negative) 04/25/20 Unknown Urine Ketones Negative (Negative) 04/25/20 Unknown Urine Blood Negative (Negative) 04/25/20 Unknown Urine Nitrite Negative (Negative) 04/25/20 Unknown Urine Bilirubin Negative (Negative) 04/25/20 Unknown Urine Urobilinogen Negative (Negative) 04/25/20 Unknown Ur Leukocyte Esterase 1+ (Negative) H 04/25/20 Unknown Urine WBC (Auto) 1-5 /hpf (0-5) 04/25/20 Unknown Urine RBC (Auto) 0-4 /hpf (0-4) 04/25/20 Unknown U Hyaline Cast (Auto) 1-5 /lpf (0-5) 04/25/20 Unknown U Epithel Cells (Auto) 10-20 /lpf (0-5) H 04/25/20 Unknown Urine Bacteria (Auto) 2+ (Negative) H 04/25/20 Unknown
--- NOTE | 2020-05-21 14:32 | Hospitalist Progress Note ---
Date of Service May 21, 2020 Assessment & Plan (1) Post-traumatic spasticity: POD #2 Left Foot posterior tibial tendon transfer. Lengthening of Flexor Hallucis Longus tendon. Lengthening of flexor Digitorum Longus tendon. Achilles Tendon lengthening. Plantar Fascial Release. Posterior Ankle arthrotomy with capsular Release with Dr. Feldman Pain generally controlled Still no sensation to foot but good capillary refill and good movement of toes Bandages in place and bulky. I did not take this down to check pedal pulses. However, popliteal pulses are strong Further management per surgical team (2) GERD (gastroesophageal reflux disease): Continue pantoprazole inpatient Discharge on home dose of omeprazole Patient is asymptomatic (3) Multiple sclerosis: Tysataylor as an outpatient Continue to follow outpatient No acute intervention required (4) Osteoporosis: On Reclast Continue Ca-Vit D supplementation (5) Insomnia: Currently using Benadryl nightly Consider alternatives such as melatonin and magnesium (6) Hypothyroidism: Continue levothyroxine TSH within normal limits in March 2020 Continued management per outpatient clinic (7) Anxiety: Continue Lexapro (8) Urinary incontinence: Continue Myrbetriq 50mg PO QAM (9) Leg swelling: Furosemide 20 mg every morning (home dose) (10) DVT prophylaxis: Chemical prophylaxis per orthopedics Out of bed to chair as tolerated Thank you very much for including us in the care of this patient. We will sign off at this time as patient's comorbidities are stable. Please feel free to reconsult as needed. Admission and Anticipated Discharge Date Admission Date: May 20, 2020 Subjective POD #2 Patient seen and examined at bedside with her present Pain is generally controlled She does have numbness of the left foot with good capillary refill and mobility of toes She denies fever, chills, sweats, rigors. She has no chest pain or tightness. She has no shortness of breath. She has no acute complaints. Review of Systems Review of Systems: All systems reviewed & are unremarkable except as noted in HPI & below Physical Exam Physical Exam: GENERAL : No acute distress EYES: No icterus, gaze conjugate NOSE: No evidence of epistaxis MOUTH: No lesions or candidiasis NECK: Supple LUNGS: CTA B/L, no wheezes, rales or rhonchi HEART: Regular, rate controlled ABDOMEN: Soft, NT, ND, BS Present EXTREMITIES: Left lower extremity wrapped and unable to examine anything below the knee other than the toes. Capillary refill is less than 2 seconds. Left popliteal pulses appreciated. Right lower extremity with no edema. Dorsal pulses appreciated on the right. NEURO: A&OX3 Results & Data Results & Data ([facility]) Vital Signs (Past 12 Hours) Vital Signs Temp Pulse Pulse Resp BP Pulse Ox 05/21/20 12:00 36.8 C 88 18 108/64 96 05/21/20 08:00 36.8 C 80 18 125/70 97 05/21/20 04:06 36.4 C L 86 18 106/64 95 Laboratory Results 05/21/20 09:15 05/21/20 09:15 Diagnostic Findings FL foot LT 2V HISTORY: 64 years-old Female LEFT FOOT left foot tendon lengthening COMPARISON: None TECHNIQUE: 2 spot fluoroscopic images of the left foot were obtained utilizing 31.3 seconds fluoroscopy time FINDINGS: Cannulated screw of the distal aspect of the first metatarsal. Additional cannulated screws are noted within the hindfoot with interval placement of a cannulated screw within the third cuneiform. Expected post surgical soft tissue swelling with deep tissue air. IMPRESSION: Fluoroscopic assistance as above. Please see operative report for further details. ACT 112: Negative or not required by law. The above report was generated using voice recognition software. It may contain grammatical, syntax or spelling errors. Electronically signed by: Aguila Lawton M.D. 05/20/2020 2:24 PM PG Care Time/CCT Total # of Minutes Spent Total Time Spent with Patient: Total time spent is greater than 50% in coordination of care (as documented) at patient's floor/unit and/or counseling patient: Coding Level of Care Code 11964 Subseq Hosp Care Lvl 2 Diagnoses Post-traumatic spasticity R25.2 GERD (gastroesophageal reflux disease) K21.9 Multiple sclerosis G35 Osteoporosis M81.0 Insomnia G47.00 Hypothyroidism E03.9 Anxiety F41.9 Urinary incontinence R32 Leg swelling M79.89 DVT prophylaxis Z29.9
[2020-05-21] MEDS: SENNA 8.6 MG TAB PO SCH (20:18)
[2020-05-21] MEDS: PRAVASTATIN SOD 20 MG TAB PO SCH (20:18)
[2020-05-22] MEDS: HYDROCODONE/ACETAMOPHEN 5/325MG TAB PO PRN ×2 (00:32→10:53)
[2020-05-22] MEDS: LEVOTHYROXINE SODIUM 100 MCG TABLET PO SCH (05:44)
[2020-05-22] MEDS: ACETAMINOPHEN 500 MG TAB PO SCH ×3 (05:45→21:28)
[2020-05-22] MEDS: PANTOprazole 40 MG TAB PO SCH (10:20)
[2020-05-22] MEDS: ESCITALOPRAM OXALATE 20 MG TAB PO SCH (10:21)
[2020-05-22] MEDS: FUROSEMIDE 20 MG TAB PO SCH (10:21)
[2020-05-22] MEDS: MIRABEGRON ER 25 MG TAB PO SCH (10:21)
[2020-05-22] MEDS: BACLOFEN 20 MG TAB PO SCH ×4 (10:21→21:24)
[2020-05-22] MEDS: MULTIVITAMIN TAB PO SCH (10:21)
[2020-05-22] MEDS: DOCUSATE SODIUM 100 MG CAP PO SCH ×2 (10:22→21:25)
[2020-05-22] MEDS: ENOXAPARIN INJ 40 MG/0.4 ML SYR SQ SCH (10:22)
[2020-05-22] MEDS: ESCITALOPRAM OXALATE 10 MG TAB PO SCH (10:22)
--- NOTE | 2020-05-22 10:54 | Orthopedic Progress Note ---
Date of Service May 22, 2020 Assessment & Plan (1) Equinus contracture of left ankle: Postop day 2 status post 1. Left posterior tibial tendon transfer to the third cuneiform bone with Endobutton and 7 mm Arthrex Bio-Tenodesis screw. 2. Achilles tendon lengthening. 3. Flexor hallucis longus lengthening. 4. Flexor digitorum longus tendon lengthening. 5. Posterior ankle joint arthrotomy with capsulotomy. 6. Plantar fascial release. 7. Application of platelet rich plasma concentrate. PT/OT protocols nonweightbearing left lower extremity DVT prophylaxis-Lovenox subcu daily, SCDs Pain management as written DC planning-planning for rehab versus SNF. Awaiting authorization. Admission and Anticipated Discharge Date Admission Date: May 20, 2020 Subjective POD 2 Pt sitting at bedside. No complaints. Comfortable. Pain controlled. States she would like to go to SNF at time of discharge. Physical Exam Physical Exam: Dressing / Splint intact. Toes pink and warm. Cap refill < 2 seconds. Moving the toes a lot better today. Sensation about the same (h/o neuropathy) Results & Data ([facility]) Vital Signs (Past 12 Hours) Vital Signs Temp Pulse Resp BP Pulse Ox 05/22/20 06:49 91 05/22/20 06:48 36.8 C 93 H 20 120/72 83 L 05/21/20 23:15 95 05/21/20 23:10 37.6 C H 112 H 20 136/71 89 L
[2020-05-22] MEDS: PRAVASTATIN SOD 20 MG TAB PO SCH (21:26)
[2020-05-22] MEDS: SENNA 8.6 MG TAB PO SCH (21:27)
[2020-05-23] MEDS: HYDROCODONE/ACETAMOPHEN 5/325MG TAB PO PRN ×2 (00:22→11:55)
[2020-05-23] MEDS: ACETAMINOPHEN 500 MG TAB PO SCH ×3 (05:36→20:35)
[2020-05-23] MEDS: LEVOTHYROXINE SODIUM 100 MCG TABLET PO SCH (05:36)
[2020-05-23] MEDS: ESCITALOPRAM OXALATE 10 MG TAB PO SCH (08:47)
[2020-05-23] MEDS: MULTIVITAMIN TAB PO SCH (08:47)
[2020-05-23] MEDS: ESCITALOPRAM OXALATE 20 MG TAB PO SCH (08:47)
[2020-05-23] MEDS: MIRABEGRON ER 25 MG TAB PO SCH (08:47)
[2020-05-23] MEDS: FUROSEMIDE 20 MG TAB PO SCH (08:47)
[2020-05-23] MEDS: DOCUSATE SODIUM 100 MG CAP PO SCH ×2 (08:47→20:33)
[2020-05-23] MEDS: BACLOFEN 20 MG TAB PO SCH ×3 (08:48→20:32)
[2020-05-23] MEDS: ENOXAPARIN INJ 40 MG/0.4 ML SYR SQ SCH (08:49)
[2020-05-23] MEDS: PANTOprazole 40 MG TAB PO SCH (08:51)
--- NOTE | 2020-05-23 09:08 | Orthopedic Progress Note ---
Date of Service May 23, 2020 Assessment & Plan (1) Equinus contracture of left ankle: Postop day 3 status post 1. Left posterior tibial tendon transfer to the third cuneiform bone with Endobutton and 7 mm Arthrex Bio-Tenodesis screw. 2. Achilles tendon lengthening. 3. Flexor hallucis longus lengthening. 4. Flexor digitorum longus tendon lengthening. 5. Posterior ankle joint arthrotomy with capsulotomy. 6. Plantar fascial release. 7. Application of platelet rich plasma concentrate. PT/OT protocols nonweightbearing left lower extremity DVT prophylaxis-Lovenox subcu daily, SCDs Pain management as written DC planning-planning for rehab versus SNF. Awaiting authorization. Admission and Anticipated Discharge Date Admission Date: May 20, 2020 Subjective Postop day 3 Patient currently sitting up in bed awake and alert. No complaints this morning. Pain is controlled. Denies shortness of breath, chest pain, lightheadedness. Physical Exam Physical Exam: Splint/dressing remains clean, dry, and intact. Toes are mobile. Cap refill is less than 2 seconds. Decreased sensation with history of neuropathy. Results & Data ([facility]) Vital Signs (Past 12 Hours) Vital Signs Temp Pulse Pulse Resp BP Pulse Ox 05/23/20 07:36 36.9 C 94 H 18 123/78 93 05/22/20 22:56 37.1 C 102 H 18 129/75 94
[2020-05-23] MEDS: PRAVASTATIN SOD 20 MG TAB PO SCH (20:32)
[2020-05-23] MEDS: SENNA 8.6 MG TAB PO SCH (20:34)
[2020-05-24] MEDS ORDERED: CALCIUM CARBONATE 500 MG CHEWABLE TAB PO ONE (00:16)
[2020-05-24] MEDS: BACLOFEN 20 MG TAB PO SCH ×3 (00:23→10:37)
[2020-05-24] MEDS: ACETAMINOPHEN 500 MG TAB PO SCH (05:16)
[2020-05-24] MEDS: LEVOTHYROXINE SODIUM 100 MCG TABLET PO SCH (05:16)
[2020-05-24] MEDS: ESCITALOPRAM OXALATE 20 MG TAB PO SCH (07:50)
[2020-05-24] MEDS: MULTIVITAMIN TAB PO SCH (07:50)
[2020-05-24] MEDS: PANTOprazole 40 MG TAB PO SCH (07:51)
[2020-05-24] MEDS: DOCUSATE SODIUM 100 MG CAP PO SCH (07:51)
[2020-05-24] MEDS: ENOXAPARIN INJ 40 MG/0.4 ML SYR SQ SCH (07:51)
[2020-05-24] MEDS: MIRABEGRON ER 25 MG TAB PO SCH (07:51)
[2020-05-24] MEDS: ESCITALOPRAM OXALATE 10 MG TAB PO SCH (07:51)
[2020-05-24] MEDS: FUROSEMIDE 20 MG TAB PO SCH (07:51)
--- NOTE | 2020-05-24 08:48 | Orthopedic Progress Note ---
Date of Service May 24, 2020 Assessment & Plan (1) Equinus contracture of left ankle: Postop day 4 status post 1. Left posterior tibial tendon transfer to the third cuneiform bone with Endobutton and 7 mm Arthrex Bio-Tenodesis screw. 2. Achilles tendon lengthening. 3. Flexor hallucis longus lengthening. 4. Flexor digitorum longus tendon lengthening. 5. Posterior ankle joint arthrotomy with capsulotomy. 6. Plantar fascial release. 7. Application of platelet rich plasma concentrate. PT/OT protocols nonweightbearing left lower extremity DVT prophylaxis-Lovenox subcu daily, SCDs Pain management as written DC planning-[facility] today. Admission and Anticipated Discharge Date Admission Date: May 20, 2020 Subjective Postop day 4 Patient currently sitting up in bed awake and alert. No complaints this morning. Pain is controlled. Denies shortness of breath, chest pain, lightheadedness. Physical Exam Constitutional: well developed and well nourished; no acute distress ENMT: external ear and nose normal, oropharynx normal Neck: trachea midline, no thyromegaly Respiratory: normal respiratory effort, lungs clear to auscultation Cardiovascular: Rate/Rhythm: regular rate and regular rhythm Gastrointestinal (Abdomen): normal bowel sounds, soft, nontender, no hepatosplenomegaly Musculoskeletal: Ankle: + deformity (improved left Equinus contracture s/p tendon lengthenigs.) and + surgical incision (left ankle--splint C/D/I); no skin erythema and no ecchymosis Skin: no rashes, warm and dry Psychiatric: A+Ox3, euthymic affect Lymphatic: no cervical or axillary lymphadenopathy Results & Data ([facility]) Vital Signs (Past 12 Hours) Vital Signs Temp Pulse Pulse Pulse Resp BP BP 05/24/20 08:41 36.5 C 94 H 84 97 H 18 112/62 112/69 05/24/20 07:40 36.5 C 84 18 112/69 05/23/20 23:29 36.9 C 91 H 16 145/75 H Pulse Ox 05/24/20 08:41 96 05/24/20 07:40 96 05/23/20 23:29 95
[2020-05-24] MEDS: HYDROCODONE/ACETAMOPHEN 5/325MG TAB PO PRN (10:09)
--- NOTE | 2020-05-28 00:19 | Discharge Summary (DS) ---
DISCHARGE DIAGNOSES: 1. Fixed equinus contracture, left ankle. 2. Achilles tendon contracture. 3. Contracture of the flexor hallucis longus. 4. Contracture of the posterior tibial tendon. 5. Contracture of the flexor digitorum longus. 6. Contracture of the plantar fascia. 7. Contracture of the posterior ankle joint. CONSULTS: Dr. James Jauregui. COMPLICATIONS: None. PROCEDURES: 1. Left posterior tibial tendon transfer to the third cuneiform bone with an Endobutton and 7 mm Arthrex Bio-Tenodesis screw. 2. Achilles tendon lengthening. 3. Flexor hallux longus lengthening. 4. Flexor digitorum longus tendon lengthening. 5. Posterior ankle joint arthrotomy with capsulotomy. 6. Plantar fascial release. 7. Application of platelet rich plasma concentrate by Dr. Feldman on 05/20/2020. BRIEF HISTORY: As dictated in the history and physical. HOSPITAL SUMMARY: The patient was admitted on the above-noted date and had the above-noted surgery performed, which she tolerated well. Hospitalist service was consulted for medical management and continued to see the patient until they signed off on 05/21/2020. She remained medically stable throughout her stay. On her first postoperative day, she was sitting in her bed, awake and alert. She had no complaints. Pain was controlled. She denied shortness of breath, chest pain or lightheadedness. Plans were for either [facility] versus skilled facility and the patient was otherwise remaining stable. Vital signs were stable and she was afebrile. Dressings were clean, dry and intact. Toes were mobile. Capillary refill is less than 2 seconds. She had decreased sensation with history of neuropathy. Hemoglobin was 11.8. She continued to remain stable and by her second postoperative day, there were no essential changes and she was progressing well, no complaints and comfortable. Pain was controlled. Dressings and splint was intact. Toes were pink and warm. Cap refill is less than 2 seconds. She was moving the toes a lot more and sensation was about the same. The rest of her stay was essentially uneventful and she continued to progress in PT. Plans were made for a skilled facility and by 05/24/2020, she had no other changes, was having good pain control. Denied shortness of breath, chest pain or lightheadedness. Her splint remained clean, dry and intact. Toes were mobile. She had good capillary refill. Vital signs were stable and she was afebrile and it was felt she could be transferred to skilled facility on 05/24/2020. For further review, please see chart. LABORATORY AND X-RAY DATA: As per chart. DISCHARGE INSTRUCTIONS: The patient was discharged to a skilled facility on 05/24/2020. DIET: Heart healthy. ACTIVITY: Left nonweightbearing with walker. Follow special care instructions as noted. Follow up with Dr. Feldman in 2 weeks. The patient to call for appointment if one has not been made for you. DISCHARGE MEDICATIONS: Acetaminophen 1000 mg p.o. q. 8 hours, Colace 100 mg p.o. b.i.d., sennoside 17.2 mg p.o. at bedtime. Resume home meds as listed.
== END 2020-05-24 11:37 ==
LOC: ASU 07:36 → 3N 15:53 → INTOOBSV 15:53